=== PATIENT | male | born 2000 | race Two or more races ===

== ENCOUNTER 2022-07-12 12:31 | Emergency (ER) | payer BC, OTHER ==
[~2022-07-12] VITALS: Ht 167.6 cm; Wt 208.1 kg
[2022-07-12] MEDS ORDERED: ASPirin 325 MG TAB PO ONE (13:00)
[2022-07-12 13:28] LABS: Basophils # (auto) 0.1 10 ^3/uL (0-0.2); Basophils % (auto) 0.8 % (0.0-2.0); Eosinophils # (auto) 0.3 10 ^3/uL (0-0.8); Eosinophils % (auto) 2.6 % (0.0-7.0); Hematocrit 41.8 % (41.0-53.0); Hemoglobin 13.7 g/dL (13.5-17.5); Lymphocytes # (auto) 3.4 10 ^3/uL (0.4-5.4); Lymphocytes % (auto) 29.4 % (10.0-50.0); Mean Corpuscular Hemoglobin 27.7 pg (28.0-32.0); Mean Corpuscular Hgb Conc. 32.7 g/dL (32.0-36.0); Mean Corpuscular Volume 84.6 fL (80.0-100.0); Monocytes # (auto) 0.8 10 ^3/uL (0-1.3); Monocytes % (auto) 6.5 % (0.0-12.0); Neutrophils # (auto) 7.1 10 ^3/uL (1.6-8.6); Neutrophils % (auto) 60.7 % (37.0-80.0); Nucleated Red Blood Cells % 0.1 %; Red Blood Cells 4.94 10^6/uL (4.5-5.90); Red Cell Distribution Width 14.5 % (11.8-14.3); White Blood Cell 11.6 10^3/uL (4.4-10.8)
[2022-07-12 13:45] LABS: Albumin 3.2 g/dL (3.4-5.0); BUN/Creatinine Ratio 19.2; Calcium 8.5 mg/dL (8.5-10.1); INR 0.94 (0.9-1.15); Partial Thromboplastin Time 26.6 sec (24.6-33.4)
[2022-07-12 13:47] LABS: Bilirubin, Total 0.9 mg/dL (0.2-1.0); Total Protein 7.3 g/dL (6.4-8.2)
[2022-07-12 16:07] VITALS: BP 159/60
== END 2022-07-12 16:11 | disposition home or self-care (01) ==
LOC: ER 12:34
DX: R07.89 Other chest pain (principal)
CPT/HCPCS: 36415; 71045; 80053; 84484; 85025; 85379; 85610; 85730; 93005